=== PATIENT | female | born 1970 | race Caucasian/White ===

== ENCOUNTER 2017-02-12 08:10 | Day surgery (SDC) | payer BC ==
[2017-02-02 11:11] LABS: BASOPHILS 0.5 %; BASOPHILS ABSOLUTE 0.03 10/3/uL (0.0-0.16); EOSINOPHILS 1.1 %; EOSINOPHILS ABSOLUTE 0.07 10/3/uL (0.0-0.53); HEMATOCRIT 36.4 % (36.0-48.0); HEMOGLOBIN 12.1 g/dL (12.0-16.0); IMMATURE GRANULOCYTES 0.3 %; IMMATURE GRANULOCYTES ABSOLUTE 0.02 10/3/uL (0.0-0.11); LYMPHOCYTES 22.9 %; LYMPHOCYTES ABSOLUTE 1.42 10/3/uL (0.67-4.30); MANUAL DIFF NO %; MEAN CORPUS HGB CONC 33.2 g/dL (32.0-36.0); MEAN CORPUSCULAR VOLUME 87.3 fL (80-100); MONOCYTES 6.1 %; MONOCYTES ABSOLUTE 0.38 10/3/uL (0.21-1.20); NEUTROPHILS 69.1 %; NEUTROPHILS ABSOLUTE 4.29 10/3/uL (2.02-8.40); PLATELET COUNT 313 10/3/uL (150-400); RBC DISTRIBUTION WIDTH 12.7 % (12.0-16.0); RED CELL COUNT 4.17 10/6/uL (4.0-5.6); WHITE BLOOD CELLS 6.2 10/3/uL (4.5-10.5)
[2017-02-02 11:27] LABS: A/G RATIO 1.2 (0.7-1.9); ALBUMIN 3.5 G/DL (3.5-5.0); ALKALINE PHOSPHATASE 84 U/L (45-117); BUN (BLOOD UREA NITROGEN) 8 MG/DL (6-23); CALCIUM, SERUM 8.8 MG/DL (8.5-10.4); CHLORIDE, SERUM 106 MMOL/L (96-112); CO2 (CARBON DIOXIDE) 29 MMOL/L (24-34); CREATININE 0.65 MG/DL (0.55-1.02); GFR AFRICAN AMERICAN 123 ML/MIN (>=60); GFR NON AFRICAN AMERICAN 106 ML/MIN (>=60); GLOBULIN 2.9 G/DL (2.5-4.1); GLUCOSE, SERUM 72 MG/DL (60-99); POTASSIUM, SERUM 3.8 MMOL/L (3.5-5.3); SGOT(AST) 16 U/L (5-40); SGPT(ALT) 11 U/L (5-65); SODIUM, SERUM 141 MMOL/L (135-148); TOTAL BILIRUBIN 0.4 MG/DL (0-1.2); TOTAL PROTEIN 6.4 G/DL (6.0-8.5)
--- NOTE | ~2017-02-12 | OP ---
Record Of Operation [facility] [address] [place]. [address] NAME: DANIELA PARHAM : 70 STATUS : [facility]#: [id number] AGE: 46 ADM/REG DATE : 02/12/17 MR#: [id number] REPORT SERV DATE: 02/12/17 DICTATED BY: RUBY CLARK III DATE: 02/12/17 REPORT STATUS : Draft TRANSCRIBED BY: MODL DATE: 02/12/17 DATE OF PROCEDURE: 02/12/2017 PREOPERATIVE DIAGNOSIS: Symptomatic acalculous cholecystitis. POSTOPERATIVE DIAGNOSIS: Symptomatic acalculous cholecystitis. PROCEDURE: Laparoscopic cholecystectomy. SURGEON: Ruby Clark M.D. ANESTHESIA: General with intubation. COMPLICATIONS: None. BLOOD LOSS: Less than 30 mL. SPECIMEN: Gallbladder. DRAINS: None. LAP SPONGE COUNT: Correct x3. HISTORY: This 46-year-old female presented with evidence for symptomatic acalculous cholecystitis. It was felt that laparoscopic cholecystectomy, possible laparotomy, was indicated. This procedure, the risks, benefits, and alternatives, including but not limited to the risk for bleeding, infection, common bile duct injury, bile leak, retained common bile stone, enterotomy, or injury to any abdominal structure, the definite possible need for laparotomy with possible persistence of her symptoms unrelieved by surgery, possibility of postoperative diarrhea or incisional hernia, and unforeseen complications including deep venous thrombosis, pulmonary embolus, myocardial infarction, stroke, pneumonia, , were fully and completely explained to the patient at length prior to surgery. The fact that this was a major operation with risk for major morbidity and mortality, no guarantee for relief of her symptoms were explained to her. The expected length of recovery with open laparoscopic procedures were explained due to the fact that this was a major operation with risk for major morbidity and mortality was explained. The patient's questions were answered. She understood the risks and agreed with surgery as planned. FINDINGS: The patient's gallbladder marquez were thickened and inflamed. There were adhesions between the gallbladder and omentum consistent with cholecystitis. The liver and remainder of the upper abdomen were otherwise unremarkable as far as we could determine through the laparoscope. DESCRIPTION OF PROCEDURE: After being appropriately identified and after discussing the risks of surgery with the patient and her family in the preoperative area, the patient was taken to the operating room and placed in the supine position on the operating room table. Record Of Operation [facility] [address] [place]. [address] NAME: DANIELA PARHAM : 70 STATUS : [facility]#: [id number] AGE: 46 ADM/REG DATE : 02/12/17 MR#: [id number] REPORT SERV DATE: 02/12/17 DICTATED BY: RUBY CLARK III DATE: 02/12/17 REPORT STATUS : Draft TRANSCRIBED BY: MODArianna DATE: 02/12/17 General anesthesia was administered. She was intubated without difficulty. The abdomen was prepped and draped sterilely in the usual fashion. After an appropriate "time-out" per [facility] standards, a small transverse incision was made below the umbilicus. The skin and fascia on either side was elevated with towel clips. A Veress needle was placed through the incision into the peritoneal cavity. Correct position of the needle in the peritoneal cavity was confirmed by the hanging drop test. The abdominal cavity was then insufflated to about 13 mmHg with carbon dioxide. Correct position of air in the peritoneal cavity was confirmed by palpation. The Veress needle was removed and replaced with 10 mm trocar. The laparoscope was placed through this. The patient was placed in the reverse Trendelenburg position and to her left. A second 10 mm trocar was placed just below the xiphoid process, to the right of the falciform ligament, under direct vision with the laparoscope. Two 5 mm trocars were placed along the right subcostal margin, one in the midaxillary line, the other in the midclavicular line. These were also placed under direct vision with the laparoscope. The upper abdomen was inspected. The gallbladder appeared to be chronically diseased. The gallbladder marquez were thickened and inflamed consistent chronic cholecystitis. The liver and remainder of the upper abdomen were otherwise unremarkable as far as we could determine through the laparoscope. The appropriate instruments were placed through the trocars. The gallbladder was grasped and the infundibulum of the gallbladder was retracted laterally and inferiorly so as to expose the triangle of Calot. Using careful sharp and blunt dissection, the cystic duct was carefully and meticulously defined proximally and distally. The cystic duct was fairly long. The junction of the cystic duct with the common bile duct was appreciated, but not skeletonized. The cystic artery was similarly defined proximally and distally. The fibrous and fatty tissue between these structures was divided so as to clearly identify the critical angle. Once these structures were clearly defined, the cystic duct was clipped using two clips on the common bile duct side and one on the gallbladder side, all placed as close to the gallbladder as possible, taking care not encroach upon or injure the common bile duct in any way. The cystic duct was then divided between these clips as close to the gallbladder as possible. We elected not to perform a cholangiogram because there was no preoperative or intraoperative evidence for biliary dilatation and because the patient's preoperative liver enzymes were normal and because her biliary anatomy was clearly defined. Again, the structure was not divided or clipped until the critical angle and triangle of Calot had been clearly identified. The cystic artery was then similarly clipped and divided as close to the gallbladder as possible. Using the spatula and the cautery, the gallbladder was carefully dissected from the liver bed. This went very well. Before the gallbladder was completely removed, the gallbladder bed and portal areas were irrigated numerous times with saline. The saline was aspirated dry. This process was repeated several times until hemostasis was meticulously and thoroughly assured in all areas. It was also assured that the clips in the portal areas were in good position and there was no extravasation of bile from any accessory bile duct. Once this was assured, the gallbladder was completely dissected away from the liver and placed in the Endopouch. The liver bed was elevated, irrigated, and inspected for meticulous and thorough hemostasis and for absence of any biliary extravasation and to be certain that the clips were in good position. Once this was assured, the gallbladder and Endopouch were brought out through the infraumbilical incision and placed in the laparoscope through the subxiphoid port. The fascia of the infraumbilical incision was closed with 0 Vicryl suture. The lateral two trocars were removed. These two lower trocar sites were inspected on the underside for hemostasis with the laparoscope. Once this was assured, the subxiphoid trocar was removed Record Of Operation [facility] [address] [facility] [place]. [address] NAME: DANIELA PARHAM : 70 STATUS : [facility] PAT#: [id number] AGE: 46 ADM/REG DATE : 02/12/17 MR#: [id number] REPORT SERV DATE: 02/12/17 DICTATED BY: RUBY CLARK III DATE: 02/12/17 REPORT STATUS : Draft TRANSCRIBED BY: BROOKE DATE: 02/12/17 under direct vision with the laparoscope to assure hemostasis in this incision. The air was removed from the peritoneal cavity through this incision. The skin incisions were inspected for hemostasis, they were closed with running subcuticular 4-0 Monocryl stitches. They were injected with one-half percent Marcaine. Dressings were applied. Anesthesia was reversed and the patient was taken to the recovery room in stable condition. The patient tolerated the procedure well. Her family was informed of the results of surgery. The patient will be discharged later when she is stable, comfortable and tolerating liquids and able to void and ambulate. Her family was advised that she should remain on a liquid diet today and advance this as tolerated to a regular diet tomorrow. She should keep wounds clean and dry for 48 hours and that she should not drive for 3 to 4 days after surgery or while using narcotics or Phenergan. They were advised that she should resume her usual medications. She was given a prescription for a narcotic and Phenergan, which she was advised to not take while driving. She was asked to return to the office in two weeks for followup or sooner for nausea, vomiting, fever, chills, wound drainage, abdominal pain, weakness, or other problems prior to that time. ERICA/BROOKE Ruby Clark III, M.D. / [id number] CC: Teddy Duvall III, DEBORAH WYATT
--- NOTE | ~2017-02-12 | PREOPHP ---
PreOp History and Physical [facility] [address] [place]. [address] NAME: DANIELA PARHAM : 70 STATUS : [facility] PAT#: [id number] AGE: 46 ADM/REG DATE : MR#: [id number] REPORT SERV DATE: 02/11/17 DICTATED BY: RUBY CLARK III DATE: 01/22/17 REPORT STATUS : Draft TRANSCRIBED BY: MODArianna DATE: 01/22/17 HISTORY OF PRESENT ILLNESS: This is a 46-year-old female who comes to the operating room for laparoscopic cholecystectomy, possible laparotomy, for symptomatic acalculous cholecystitis. The patient complains of one-year history of intermittent episodes of upper abdominal pain. The pain is worse after eating. The pain is associated with nausea. She describes pain in the back and right upper quadrant areas associated with increased bloating and gas. The patient has evidence for severe acalculous cholecystitis. She comes to the operating room now for laparoscopic cholecystectomy, possible laparotomy. PAST MEDICAL HISTORY: History of anxiety and depression. ALLERGIES: NONE. MEDICATIONS: Celexa. SOCIAL HISTORY: The patient lives in [place], [place]. She is . She has a current history of occasional alcohol use. No history of tobacco use. FAMILY HISTORY: Positive for diabetes. REVIEW OF SYSTEMS: The patient complains of diarrhea,constipation, fatigue, depression, and anxiety. Her 14- point review of systems is otherwise unremarkable. PHYSICAL EXAMINATION: GENERAL: This is a female, in no acute distress. She is alert and oriented x3. VITAL SIGNS: Blood pressure 103/69, pulse 86, temperature 97. HEENT: Unremarkable. Cranial nerves 2 through 12 are normal. LUNGS: Clear. CARDIAC: Normal. ABDOMEN: Soft. Nontender. No masses. EXTREMITIES: Normal. LABORATORY DATA: HIDA scan shows an abnormal ejection fraction of 0%. Gallbladder ultrasound is normal. ASSESSMENT: 1. 46-year-old female with severely symptomatic acalculous cholecystitis. 2. History of depression and anxiety. PLAN: The patient comes to the operating room now for laparoscopic cholecystectomy, possible laparotomy. This procedure, the risks, benefits, and alternatives, including not limited to, risk for bleeding, infection, common bile duct injury, bile leak, retained common bile duct stone, enterotomy, injury to any abdominal structure, definite possible need for laparotomy with possible persistence of her symptoms unrelieved by surgery, possibility of postoperative diarrhea or incisional hernia, and unforeseen complications including deep venous thrombosis, pulmonary embolus, myocardial infarction, stroke, pneumonia, and , PreOp History and Physical [address] [address] NAME: DANIELA PARHAM : 70 STATUS : [facility] PAT#: [id number] AGE: 46 ADM/REG DATE : MR#: [id number] REPORT SERV DATE: 02/11/17 DICTATED BY: RUBY CLARK III DATE: 01/22/17 REPORT STATUS : Draft TRANSCRIBED BY: BROOKE DATE: 01/22/17 have been fully and completely explained to the patient at length prior to surgery. The fact that this is a major operation with risk for major morbidity and mortality, no guarantee for relief her symptoms has been explained. The expected length of recovery with open laparoscopic procedures has been explained. The patient's questions have been answered. She clearly understands the risks and clearly agrees to surgery as planned. ERICA/BROOKE Ruby Clark III, M.D. / [id number]
[~2017-02-12 08:10] MED LIST: CELEXA40 MG PO; FLONASE NAS; MULTIVIT/MIN PO
[2017-02-12 15:35] LABS: HEMATOCRIT 35.5 % (36.0-48.0); HEMOGLOBIN 11.6 g/dL (12.0-16.0)
== END 2017-02-12 17:35 | disposition home or self-care (01) ==
LOC: SDC 08:10
PROVIDERS: Surgery
PROC: 0FT44ZZ Resection of Gallbladder, Percutaneous Endoscopic Approach (ICD-10-PCS; principal; 2017-02-12 10:15)
DX: K81.9 Cholecystitis, unspecified (principal); F41.9 Anxiety disorder, unspecified; F32.9 Major depressive disorder, single episode, unspecified; Z90.89 Acquired absence of other organs; Z87.898 Personal history of other specified conditions
CPT/HCPCS: 71020; 80053; 84703; 85014; 85018; 85025; 88304; 93005; J0690; J1885; J2250; J2405; J2710; J3010